=== PATIENT | female | born 1970 | race Caucasian/White ===

== ENCOUNTER 2018-01-10 13:36 | Emergency (ER) | payer SELFPAY ==
[2018-01-10] MEDS ORDERED: MECLIZINE HCL 12.5 MG TAB ONE (15:10)
[2018-01-10] MEDS ORDERED: DIAZEPAM 2 MG TABLET ONE (15:10)
[2018-01-10] MEDS ORDERED: NA CHLORIDE 0.9% 1,000 ML ONE (15:10)
[2018-01-10] MEDS ORDERED: ONDANSETRON 4 MG/2 ML VIAL ONE (15:10)
--- NOTE | 2018-01-10 15:15 | RAD REPORT ---
EXAM DESCRIPTION: CT - Head Brain Wo Cont - 01/10/2018 2:40 pm CLINICAL HISTORY: Dizziness COMPARISON: None. TECHNIQUE: Computed axial tomography of the head was obtained. IV contrast was not requested. All CT scans are performed using dose optimization technique as appropriate and may include automated exposure control or mA/KV adjustment according to patient size. FINDINGS: An intracranial bleed is not seen . The ventricles are normal in caliber. No extra-axial fluid collection is noted. Fluid within the sinuses/ mastoids is not seen. IMPRESSION: No acute intracranial abnormality is seen. If patient's symptoms persist MRI of the bra in would be recommended.
[2018-01-10 15:19] LABS: Absolute Lymphocytes (CBC) 2.4 K/uL (0.7-4.9); Absolute Monocytes 0.6 K/uL (0.1-1.3); Absolute Neutrophil 6.7 K/uL (1.8-8.0); Basophils % 0.5 % (0-1.3); Eosinophils % 1.3 % (0-4.4); Lymphocytes % 24.3 % (15.3-44.8); MCH 26.6 pg (27.0-35.0); MCV 83.1 fL (80-100); MPV 8.5 fL (7.6-11.3); Monocytes % 6.1 % (3.3-12.3); RBC Red Blood Cell Count 4.21 M/uL (3.86-4.86)
[2018-01-10 15:34] LABS: BUN Blood Urea Nitrogen 10 mg/dL (7-18); Bicarbonate 29 mmol/L (21-32); Glucose Level 138 mg/dL (74-106); Magnesium 2.3 mg/dL (1.8-2.4); Potassium 3.4 mmol/L (3.5-5.1); Sodium Level 138 mmol/L (136-145)
--- NOTE | 2018-01-10 17:18 | EDPHYS ---
Physician Documentation [facility] Name: Tiffany Ibrahim Age: 47 yrs Sex: Female : 1970 Arrival Date: 01/10/2018 Time: 13:39 Bed 19 Private MD: Steve Bender ED Physician Johnson Narvaez HPI: 01/10 15:15 This 47 yrs old Female presents to ER via Ambulatory with complaints of rn Vomiting, dizziness. 15:16 The patient presents with dizziness, feeling off balance, sense of spinning. Onset: The rn symptoms/episode began/occurred 1 week(s) ago. Modifying factors: The symptoms are alleviated by closing eyes, holding head still, the symptoms are aggravated by movement of head, standing up, changing position. Severity of symptoms: At their worst the symptoms were moderate in the emergency department the symptoms have improved. The patient has not experienced similar symptoms in the past. REports dizziness for 2 weeks, intermittent, assoc with nausea/vomiting, got better, has been going to work, feels off balance when walking, vomiting is what brought her in more than dizziness, no fever/diarrhea/head injury, worse with head movement. . Historical: - Allergies: 14:04 Codeine; hb 14:04 PENICILLINS; hb - Immunization history:: Adult Immunizations up to date. - Social history:: Smoking status: Patient uses tobacco products, smokes one pack cigarettes per day. - Ebola Screening: : No symptoms or risks identified at this time. - Family history:: not pertinent. - Hospitalizations: : No recent hospitalization is reported. ROS: 15:16 Constitutional: Negative for fever, chills, and weight loss, Eyes: Negative for injury, rn pain, redness, and discharge, Neck: Negative for injury, pain, and swelling, Cardiovascular: Negative for chest pain, palpitations, and edema, Respiratory: Negative for shortness of breath, cough, wheezing, and pleuritic chest pain, Abdomen/GI: Negative for abdominal pain, diarrhea, and constipation, MS/Extremity: Negative for injury and deformity, Skin: Negative for injury, rash, and discoloration, Neuro: Negative for headache, umbness, tingling, and seizure. Exam: 15:16 Constitutional: This is a well developed, well nourished patient who is awake, alert, rn wearing sunglasses and holding emesis bag Head/Face: Normocephalic, atraumatic. Eyes: Pupils equal round and reactive to light, extra-ocular motions intact. Lids and lashes normal. Conjunctiva and sclera are non-icteric and not injected. Cornea within normal limits. Periorbital areas with no swelling, redness, or edema. No nystagmus Neck: Trachea midline, no thyromegaly or masses palpated, and no cervical lymphadenopathy. Supple, full range of motion without nuchal rigidity, or vertebral point tenderness. No Meningismus. Cardiovascular: Regular rate and rhythm with a normal S1 and S2. No gallops, murmurs, or rubs. Normal PMI, no JVD. No pulse deficits. Respiratory: Lungs have equal breath sounds bilaterally, clear to auscultation and percussion. No rales, rhonchi or wheezes noted. No increased work of breathing, no retractions or nasal flaring. Abdomen/GI: Soft, non-tender, with normal bowel sounds. No distension or tympany. No guarding or rebound. No evidence of tenderness throughout. MS/ Extremity: Pulses equal, no cyanosis. Neurovascular intact. Full, normal range of motion. Equal circumference. Neuro: Awake and alert, GCS 15, oriented to person, place, time, and situation. Cranial nerves II-XII grossly intact. Motor strength 5/5 in all extremities. Sensory grossly intact. Cerebellar exam normal. Vital Signs: 14:03 BP 133 / 82; Pulse 85; Resp 16; Temp 97.9; Pulse Ox 99% on R/A; Pain 0/10; hb 15:28 BP 138 / 81; Pulse 72; Resp 18; Pulse Ox 99% on R/A; aj1 16:40 BP 127 / 80; Pulse 86; Resp 18; Pulse Ox 99% on R/A; aj1 17:25 BP 123 / 72; Pulse 75; Resp 18; Pulse Ox 98% on R/A; aj1 MDM: 14:15 Patient medically screened. rn 17:12 Differential diagnosis: generalized weakness, hyperventilation, hypovolemia, idiopathic rn dizziness, TIA, vertigo. Data reviewed: vital signs, nurses notes, lab test result(s), EKG, radiologic studies, CT scan, and as a result, I will discharge patient. Counseling: I had a detailed discussion with the patient and/or guardian regarding: the historical points, exam findings, and any diagnostic results supporting the discharge/admit diagnosis, lab results, radiology results, the need for outpatient follow up, to return to the emergency department if symptoms worsen or persist or if there are any questions or concerns that arise at home. Response to treatment: the patient's symptoms have markedly improved after treatment, and as a result, I will discharge patient. Special discussion: I discussed with the patient/guardian in detail that at this point there is no indication for admission to the hospital. It is understood, however, that if the symptoms persist or worsen the patient needs to return immediately for re-evaluation. ED course: Pt feels much better, ambulatory without assistance, neg w/u here, offered MRI to completely rule out etiology, patient prefers to f/u with neurology and get MRI outpt if recommended, has seen dr vázquez before. Will dc home as most likely peripheral vertigo with episodic symptoms, that are mild at times so she can work and climb ladders, and other times trouble walking and vomiting. Normal neuro exam otherwise. . 01/10 14:29 Order name: Urine Microscopic Only rn 01/10 14:29 Order name: Basic Metabolic Panel rn 01/10 14:29 Order name: CBC with Diff rn 01/10 14:29 Order name: Magnesium rn 01/10 14:29 Order name: Troponin (emerg Dept Use Only) rn 01/10 15:28 Order name: CBC with Automated Diff; Complete Time: 17:03 EDDC 01/10 14:29 Order name: CT Head Brain wo Cont rn 01/10 15:15 Order name: CT; Complete Time: 17:03 EDDC 01/10 15:34 Order name: Basic Metabolic Panel; Complete Time: 17:03 EDDC 01/10 15:34 Order name: Magnesium; Complete Time: 17:03 EDDC 01/10 15:39 Order name: Troponin (Emerg Dept Use Only); Complete Time: 17:03 EDDC 01/10 14:29 Order name: EKG; Complete Time: 14:30 rn 01/10 14:29 Order name: Cardiac monitoring; Complete Time: 15:14 rn 01/10 14:29 Order name: EKG - Nurse/Tech; Complete Time: 15:13 rn 01/10 14:29 Order name: IV Saline Lock; Complete Time: 15:13 rn 01/10 14:29 Order name: Labs collected and sent; Complete Time: 15:13 rn 01/10 14:29 Order name: NPO; Complete Time: 15:14 rn 01/10 14:29 Order name: O2 Per Protocol; Complete Time: 15:14 rn 01/10 14:29 Order name: O2 Sat Monitoring; Complete Time: 15:14 rn Administered Medications: 15:29 Drug: NS 0.9% 1000 ml Route: IV; Rate: 1000 ml; Site: left antecubital; aj1 16:30 Follow up: IV Status: Completed infusion; IV Intake: 1000ml aj1 15:29 Drug: Zofran 4 mg Route: IVP; Site: left antecubital; aj1 17:27 Follow up: Response: No adverse reaction aj1 15:52 Drug: Meclizine 50 mg Route: PO; aj1 16:15 Follow up: Response: No adverse reaction aj1 15:52 Drug: Valium 2 mg Route: PO; aj1 16:15 Follow up: Response: No adverse reaction aj Disposition: 01/10/18 17:18 Discharged to Home. Impression: Vertigo, Vomiting. - Condition is Stable. - Discharge Instructions: Nausea and Vomiting, Adult, Vertigo. - Prescriptions for Zofran ODT 4 mg Oral tablet,disintegrating - place 1 tablet by TRANSLINGUAL route every 8-10 hours As needed; 20 tablet. Valium 2 mg Oral Tablet - take 1 tablet by ORAL route every 8-12 hours As needed; 20 tablet. - Medication Reconciliation Form, Thank You Letter, Antibiotic Education, Prescription Opioid Use form. - Follow up: Rashid Vázquez MD; When: 2 - 3 days; Reason: Recheck today's complaints, Re-evaluation by your physician. - Problem is new. - Symptoms have improved. Signatures: Dispatcher [employer] EDKatya Emmanuel RN RN aj1 Johnson Narvaez MD MD rn Baxter, Heather, RN RN Corrections: (The following items were deleted from the chart) 17:52 17:18 01/10/2018 17:18 Discharged to Home. Impression: Vertigo; Vomiting. Condition is aj1 Stable. Forms are Medication Reconciliation Form, Thank You Letter, Antibiotic Education, Prescription Opioid Use. Follow up: Rashid Vázquez; When: 2 - 3 days; Reason: Recheck today's complaints, Re-evaluation by your physician. Problem is new. Symptoms have improved. rn
--- NOTE | 2018-01-10 17:18 | ER ---
Nurse's Notes [facility] Name: Tiffany Ibrahim Age: 47 yrs Sex: Female : 1970 Arrival Date: 01/10/2018 Time: 13:39 Bed 19 Private MD: Steve Bender Diagnosis: Vertigo;Vomiting Presentation: 01/10 14:02 Presenting complaint: Patient states: Vomiting x 2 days, dizziness x 1 week. Recently hb seen by Dr. Bender for same s/s, dx with vertigo. Not tolerating liquids. Denies diarrhea/fever. Transition of care: patient was not received from another setting of care. Onset of symptoms was January 04, 2018. Risk Assessment: Do you want to hurt yourself or someone else? Patient reports no desire to harm self or others. Care prior to arrival: None. 14:02 Method Of Arrival: Ambulatory hb 14:02 Acuity: ANT 3 hb Historical: - Allergies: 14:04 Codeine; hb 14:04 PENICILLINS; hb - Immunization history:: Adult Immunizations up to date. - Social history:: Smoking status: Patient uses tobacco products, smokes one pack cigarettes per day. - Ebola Screening: : No symptoms or risks identified at this time. - Family history:: not pertinent. - Hospitalizations: : No recent hospitalization is reported. Screenin:23 Abuse screen: Denies threats or abuse. Denies injuries from another. Nutritional aj1 screening: No deficits noted. Tuberculosis screening: No symptoms or risk factors identified. 17:52 Fall Risk None identified. aj1 Assessment: 14:23 General: Appears in no apparent distress. uncomfortable, Behavior is cooperative, aj1 restless. Pain: Complains of pain in face, right lower quadrant and left lower quadrant Pain does not radiate. Pain currently is 7 out of 10 on a pain scale. Quality of pain is described as aching, Is intermittent. Neuro: Level of Consciousness is awake, alert, obeys commands, Oriented to person, place, time, situation, Moves all extremities. Full function Speech is normal, Facial symmetry appears normal, Reports blurred vision dizziness, headache photophobia. Cardiovascular: Patient's skin is warm and dry. Respiratory: Airway is patent Respiratory effort is even, unlabored, Respiratory pattern is regular, symmetrical. GI: Abdomen is flat, non-distended, Reports nausea, vomiting, Patient currently denies diarrhea. : No signs and/or symptoms were reported regarding the genitourinary system. EENT: No signs and/or symptoms were reported regarding the EENT system. Derm: No signs and/or symptoms reported regarding the dermatologic system. Skin is pink, warm \T\ dry. normal. Musculoskeletal: No signs and/or symptoms reported regarding the musculoskeletal system. Circulation, motion, and sensation intact. 15:28 Reassessment: Patient appears in no apparent distress at this time. No changes from aj1 previously documented assessment. Patient and/or family updated on plan of care and expected duration. Pain level reassessed. Patient is alert, oriented x 3, equal unlabored respirations, skin warm/dry/pink. 16:40 Reassessment: Patient appears in no apparent distress at this time. No changes from aj1 previously documented assessment. Patient and/or family updated on plan of care and expected duration. Pain level reassessed. Patient is alert, oriented x 3, equal unlabored respirations, skin warm/dry/pink. 17:24 Reassessment: Patient appears in no apparent distress at this time. No changes from aj1 previously documented assessment. Patient and/or family updated on plan of care and expected duration. Pain level reassessed. Patient is alert, oriented x 3, equal unlabored respirations, skin warm/dry/pink. Patient states feeling better. Vital Signs: 14:03 BP 133 / 82; Pulse 85; Resp 16; Temp 97.9; Pulse Ox 99% on R/A; Pain 0/10; hb 15:28 BP 138 / 81; Pulse 72; Resp 18; Pulse Ox 99% on R/A; aj1 16:40 BP 127 / 80; Pulse 86; Resp 18; Pulse Ox 99% on R/A; aj1 17:25 BP 123 / 72; Pulse 75; Resp 18; Pulse Ox 98% on R/A; aj1 ED Course: 13:39 Patient arrived in ED. rg4 13:39 Steve Bender DO is Private Physician. rg4 14:03 Triage completed. hb 14:04 Arm band placed on left wrist. hb 14:12 Katya Okeefe, JAI is Primary Nurse. aj1 14:15 Johnson Narvaez MD is Attending Physician. rn 14:23 Patient has correct armband on for positive identification. Bed in low position. Call aj1 light in reach. Side rails up X 1. 14:23 No provider procedures requiring assistance completed. aj1 14:34 Patient moved to [place] via wheelchair. em2 14:39 CT completed. Patient tolerated procedure well. Patient moved back from [place]. em2 15:13 Initial lab(s) drawn, by me, sent to lab. Inserted saline lock: 20 gauge in left dh3 antecubital area, using aseptic technique. Blood collected. 15:27 EKG done, by senior technical business analyst. reviewed by Johnson Narvaez MD. tc 17:17 Rashid Gill MD is Referral Physician. rn 17:51 IV discontinued, intact, bleeding controlled, No redness/swelling at site. Pressure aj1 dressing applied. Administered Medications: 15:29 Drug: NS 0.9% 1000 ml Route: IV; Rate: 1000 ml; Site: left antecubital; aj1 16:30 Follow up: IV Status: Completed infusion; IV Intake: 1000ml aj1 15:29 Drug: Zofran 4 mg Route: IVP; Site: left antecubital; aj1 17:27 Follow up: Response: No adverse reaction aj1 15:52 Drug: Meclizine 50 mg Route: PO; aj1 16:15 Follow up: Response: No adverse reaction aj1 15:52 Drug: Valium 2 mg Route: PO; aj1 16:15 Follow up: Response: No adverse reaction aj1 Intake: 16:30 IV: 1000ml; Total: 1000ml. aj1 Outcome: 17:18 Discharge ordered by . rn 17:51 Discharged to home ambulatory. aj1 17:51 Condition: good 17:51 Discharge instructions given to patient, Instructed on discharge instructions, follow up and referral plans. medication usage, Demonstrated understanding of instructions, follow-up care, medications, Prescriptions given X 2. 17:52 Patient left the ED. aj1 Signatures: Katya Okeefe, RN RN [email or web address] Johnson Narvaez MD MD rn Montes, Enrique em2 Constance Osuna, customer development representative EKG Ttc Ritu Almonte, RN Oma Chang 4 Juliane Jones [facility]
--- NOTE | 2018-01-10 18:20 | EKG ---
Test Date: 2018-01-10 Test Time: 15:08:52 Refueling Ramp Attendant: MALACHI/Nayana MEASUREMENT RESULTS: Intervals: Rate: 72 MD: 142 QRSD: 84 QT: 392 QTc: 429 Duncan: P: 54 MD: 142 QRS: 43 T: 27 INTERPRETIVE STATEMENTS: Normal sinus rhythm Normal ECG No previous ECG available for comparison Electronically Signed On 01-10-18 18:19:29 CDT by Leonardo Simmons
== END 2018-01-10 17:52 | disposition home or self-care (01) ==
LOC: ER 13:36
DX: R11.10 Vomiting, unspecified (principal); F17.210 Nicotine dependence, cigarettes, uncomplicated; Z88.0 Allergy status to penicillin; Z88.5 Allergy status to narcotic agent
CPT/HCPCS: 36415; 70450; 80048; 83735; 84484; 85025; 93005; 96361; 96374; 99284; J2405; J7030